=== PATIENT | male | born 2000 | race African-American/Black ===

== ENCOUNTER 2022-07-20 23:44 | Emergency (ER) | payer BC ==
[2022-07-21] MEDS ORDERED: Ondansetron PF 4 MG/2 ML Vial ONE (00:15)
[2022-07-21] MEDS ORDERED: Sodium Chloride 0.9% 1,000 ML ONE (00:15)
[2022-07-21] MEDS ORDERED: Meclizine HCl 25 MG TAB ONE (00:15)
[2022-07-21 00:30] LABS: #Basophils 0.1 thou/uL (0.0-0.2); #Eosinphils 0.2 thou/uL (0.0-0.7); #Lymphocytes 2.3 thou/uL (1.20-3.40); #Monocytes 0.6 thou/uL (0.11-0.59); #Neutrophils 3.6 thou/uL (1.40-6.50); %Eosinophils 3.1 % (0.0-10.0); %Monocytes 8.5 % (0.0-10.0); %Neutrophils 53.5 % (42.0-75.0); Hemoglobin 15.7 g/dL (14.0-18.0); Mean Corpuscular Hemoglobin 31.8 pg (27.0-31.0); Mean Corpuscular Volume 93.5 fl (78.0-98.0); Mean Platelet Volume 9.8 fL (7.4-10.4); Platelet Count 232 10x3/uL (130-400); RBC Distribution Width 11.8 % (11.5-14.5); Red Blood Cell (RBC) Count 4.95 mill/uL (4.70-6.10); White Blood Cell (WBC) Count 6.7 10x3/uL (4.8-10.8)
[2022-07-21 01:13] LABS: Anion Gap 14 mmol/L (10-20); BUN (Urea Nitrogen) 16 mg/dL (8.9-20.6); Calc. Creatinine Clearance 0 mL/min (70-130); Calcium 9.9 mg/dL (7.8-10.44); Carbon Dioxide 26 mmol/L (22-29); Chloride 102 mmol/L (98-107); Estimated GFR 105; Glucose 99 mg/dL (70-105); Potassium 3.9 mmol/L (3.5-5.1); Sodium 138 mmol/L (136-145)
== END 2022-07-21 01:20 | disposition home or self-care (01) ==
LOC: MADERS 23:44
DX: R42 Dizziness and giddiness (principal); I10 Essential (primary) hypertension; Z79.899 Other long term (current) drug therapy
CPT/HCPCS: 80048; 85025; 93005; 96361; 96374; J2405; J7050